=== PATIENT | male | born 1985 | race Caucasian/White ===

== ENCOUNTER 2018-12-08 20:39 | Emergency (ER) | payer SELFPAY ==
[~2018-12-08] VITALS: Ht 170 cm; Wt 70.4 kg
[~2018-12-08 20:39] MED LIST: AC500T PO; HYDR1TAB PO
--- NOTE | 2018-12-08 21:00 | NUR ---
PATIENT TO ROOM 8, CRYING AND VERBAKIZES HE JUST FOUND HIS CHEATING ON HIM AND IS VERY TEARFUL. STATES "I REALLY WOULDNT DO IT THOUGH BECAUSE OF MY KIDS"
[2018-12-08] MEDS ORDERED: LORazepam INJ 2 MG/ML (ATIVAN) VIAL IVP PRN ×3 (21:15→22:15)
--- NOTE | 2018-12-08 21:17 | NUR ---
MATT BRADEN STARTS IV AND ADMINISTERS 1.5 MG OF IV ATIVAN FOR PATIENT ANXIETY.
--- NOTE | 2018-12-08 21:28 | ED Psychosocial ---
General Chief Complaint: Psych/Social Disorder Stated Complaint: CONFUSED Nursing Triage Note: PATIENT CRYING LOUDLY IN TRIAGE STATING THAT HE HAS LOST EVERYTHING. HE TELLS ME THERE HAS BEEN MULTIPLE DEATHS. HE STATES HE HAS BEEN DOING DRUGS SINCE HE WAS A KID. HE STATES THAT EVERYTHING BAD THAT HAS HAPPENED IS HIS FAULT AND HE IS UPSET BECAUSE HE IS SUPPOSED TO BE THE ONE TAKING CARE OF HIS FAMILY. HE ADMITS THAT HE HAS DONE METH TODAY AND POSSIBLY SOME PCP. HE ADMITS TO THOUGHTS OF HURTING HIMSELF, BUT NOT ANYONE ELSE. Source: patient Exam Limitations: no limitations History of Present Illness Date Seen by Provider: Dec 08, 2018 Time Seen by Provider: 21:27 Initial Comments To ER with anxiety depression and thoughts of hurting himself related to ongoing depression and having "lost everything" relating to significant other and children. He has done some methamphetamine PCP and probably several other things today. 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15 Timing/Duration: constant Severity: moderate Associated Symptoms: insomnia Allergies and Home Medications Allergies Coded Allergies: hydrocodone (Unverified Adverse Reaction, Intermediate, VOMITTED, 08/11/09) Home Medications Hydrocodone Bit/Acetaminophen 1 Each Tablet, 1 EACH PO Q6HR PRN Prescribed by: TRENTON MARTIN on 08/11/09 1640 Patient Home Medication List Home Medication List Reviewed: Yes Review of Systems Constitutional: see HPI EENTM: see HPI Respiratory: no symptoms reported Cardiovascular: no symptoms reported Genitourinary: no symptoms reported Musculoskeletal: no symptoms reported Skin: no symptoms reported Psychiatric/Neurological: See HPI Past Bxwsksl-[id number]-Ibwlrl Hx Patient Social History Alcohol Use: Occasionally Uses Recreational Drug Use: Yes Smoking Status: Current Everyday Smoker Type Used: Cigarettes 2nd Hand Smoke Exposure: Yes Recent Foreign Travel: No Contact w/Someone Who Travel: No Recent Infectious Disease Expo: No Recent Hopitalizations: No Seasonal Allergies Seasonal Allergies: No Past Medical History Surgeries: No Physical Exam Vital Signs - First Documented 12/08/18 20:45 Temp 37.0 Pulse 126 Resp 18 B/P (MAP) 177/94 (121) Pulse Ox 97 Capillary Refill : Less Than 3 Seconds Height, Weight, BMI Height: '" Weight: lbs. oz. kg; 24.00 BMI Method: General Appearance: WD/WN, no apparent distress HEENT: PERRL/EOMI, normal ENT inspection Neck: non-tender, full range of motion Respiratory: no respiratory distress, no accessory muscle use Gastrointestinal: normal bowel sounds, non tender, soft Neurologic/Psychiatric: alert, normal mood/affect, oriented x 3, other (tearful, crying, talking loudly at a high rate of speed. 0.5 mg of Ativan ordered.) Appearance/Memory: disheveled Behavior/Eye Contact: cooperative, good eye contact Thoughts/Hallucinations: flight of ideas Skin: normal color, warm/dry Progress/Results/Core Measures Results/Orders Lab Results Laboratory Tests Test 12/08/18 21:17 12/08/18 21:26 Range/Units White Blood Count 13.0 H 4.3-11.0 10^3/uL Red Blood Count 4.54 4.35-5.85 10^6/uL Hemoglobin 13.8 13.3-17.7 G/DL Hematocrit 40 40-54 % Mean Corpuscular Volume 88 80-99 FL Mean Corpuscular Hemoglobin 30 25-34 PG Mean Corpuscular Hemoglobin Concent 35 32-36 G/DL Red Cell Distribution Width 13.5 10.0-14.5 % Platelet Count 354 130-400 10^3/uL Mean Platelet Volume 9.1 7.4-10.4 FL Neutrophils (%) (Auto) 71 42-75 % Lymphocytes (%) (Auto) 13 12-44 % Monocytes (%) (Auto) 15 H 0-12 % Eosinophils (%) (Auto) 0 0-10 % Basophils (%) (Auto) 0 0-10 % Neutrophils # (Auto) 9.3 H 1.8-7.8 X 10^3 Lymphocytes # (Auto) 1.7 1.0-4.0 X 10^3 Monocytes # (Auto) 1.9 H 0.0-1.0 X 10^3 Eosinophils # (Auto) 0.0 0.0-0.3 10^3/uL Basophils # (Auto) 0.1 0.0-0.1 10^3/uL Sodium Level 141 135-145 MMOL/L Potassium Level 3.5 L 3.6-5.0 MMOL/L Chloride Level 106 98-107 MMOL/L Carbon Dioxide Level 20 L 21-32 MMOL/L Anion Gap 15 H 5-14 MMOL/L Blood Urea Nitrogen 24 H 7-18 MG/DL Creatinine 1.01 0.60-1.30 MG/DL Estimat Glomerular Filtration Rate > 60 BUN/Creatinine Ratio 24 Glucose Level 87 70-105 MG/DL Calcium Level 9.4 8.5-10.1 MG/DL Corrected Calcium 8.5-10.1 MG/DL Total Bilirubin 0.9 0.1-1.0 MG/DL Aspartate Amino Transf (AST/SGOT) 50 H 5-34 U/L Alanine Aminotransferase (ALT/SGPT) 22 0-55 U/L Alkaline Phosphatase 91 40-136 U/L Total Protein 8.4 H 6.4-8.2 GM/DL Albumin 5.0 H 3.2-4.5 GM/DL Salicylates Level < 5.0 L 5.0-20.0 MG/DL Acetaminophen Level < 10 L 10-30 UG/ML Serum Alcohol < 10 <10 MG/DL Urine Color YELLOW Urine Clarity CLEAR Urine pH 5 5-9 Urine Specific [place] 1.030 H 1.016-1.022 Urine Protein 2+ H NEGATIVE Urine Glucose (UA) NEGATIVE NEGATIVE Urine Ketones 2+ H NEGATIVE Urine Nitrite NEGATIVE NEGATIVE Urine Bilirubin NEGATIVE NEGATIVE Urine Urobilinogen 1 NORMAL MG/DL Urine Leukocyte Esterase 1+ H NEGATIVE Urine RBC (Auto) NEGATIVE NEGATIVE Urine RBC 0-2 /HPF Urine WBC 5-10 H /HPF Urine Squamous Epithelial Cells NONE /HPF Urine Crystals NONE /LPF Urine Bacteria MODERATE H /HPF Urine Casts NONE /LPF Urine Mucus NEGATIVE /LPF Urine Culture Indicated YES Urine Opiates Screen NEGATIVE NEGATIVE Urine Oxycodone Screen NEGATIVE NEGATIVE Urine Methadone Screen NEGATIVE NEGATIVE Urine Propoxyphene Screen NEGATIVE NEGATIVE Urine Barbiturates Screen NEGATIVE NEGATIVE Ur Tricyclic Antidepressants Screen NEGATIVE NEGATIVE Urine Phencyclidine Screen NEGATIVE NEGATIVE Urine Amphetamines Screen POSITIVE H NEGATIVE Urine Methamphetamines Screen POSITIVE H NEGATIVE Urine Benzodiazepines Screen NEGATIVE NEGATIVE Urine Cocaine Screen NEGATIVE NEGATIVE Urine Cannabinoids Screen POSITIVE H NEGATIVE My Orders Orders - MATT BRADEN APRN Cbc With Automated Diff (12/08/18 21:06) Comprehensive Metabolic Panel (12/08/18 21:06) Alcohol (12/08/18 21:06) Salicylate (12/08/18 21:06) Acetaminophen (12/08/18 21:06) Ekg Tracing (12/08/18 21:06) Ua Culture If Indicated (12/08/18 21:06) Drug Screen Stat (Urine) (12/08/18 21:06) Lorazepam Injection (Ativan Injection) (12/08/18 21:15) Lorazepam Injection (Ativan Injection) (12/08/18 21:30) Urine Culture (12/08/18 21:26) Lorazepam Injection (Ativan Injection) (12/08/18 22:15) Medications Given in ED Current Medications Medications Dose Ordered Sig/[place]ora Route Start Time Stop Time Status Last Admin Dose Admin Lorazepam 1.5 mg ONCE PRN IVP 12/08/18 21:30 12/08/18 21:17 1.5 MG Vital Signs/I&O 12/08/18 20:45 Temp 37.0 Pulse 126 Resp 18 B/P (MAP) 177/94 (121) Pulse Ox 97 Blood Pressure Mean: 121 Departure Communication (Admissions) [id number]-patient is much more relaxed assures me he will not kill himself or harm himself because he is his , his daughter's birthday is on Tuesday and he wants to be around for that. He is much calmer now and feels that outpatient therapy is appropriate. Impression Primary Impression: Anxiety Disposition: 01 HOME, SELF-CARE Condition: Stable Departure-Patient Inst. Decision time for Depature: 22:10 Referrals: NO,LOCAL PHYSICIAN (PCP/Family) Primary Care Physician Patient Instructions: Anxiety, Adult (DC) MATT BRADEN APRN Dec 08, 2018 21:28
[2018-12-08 21:30] LABS: BASOPHILS # (AUTO) 0.1 10^3/uL (0.0-0.1); BASOPHILS % (AUTO) 0 % (0-10); EOSINOPHILS % (AUTO) 0 % (0-10); HEMATOCRIT 40 % (40-54); HEMOGLOBIN 13.8 G/DL (13.3-17.7); LYMPHOCYTES # (AUTO) 1.7 X 10^3 (1.0-4.0); LYMPHOCYTES % (AUTO) 13 % (12-44); MEAN CORPUSCULAR HEMOGLOBIN 30 PG (25-34); MEAN CORPUSCULAR HGB CONC 35 G/DL (32-36); MEAN CORPUSCULAR VOLUME 88 FL (80-99); MEAN PLATELET VOLUME 9.1 FL (7.4-10.4); MONOCYTES # (AUTO) 1.9 X 10^3 (0.0-1.0); MONOCYTES % (AUTO) 15 % (0-12); NEUTROPHILS # (AUTO) 9.3 X 10^3 (1.8-7.8); NEUTROPHILS % (AUTO) 71 % (42-75); PLATELET COUNT 354 10^3/uL (130-400); RED CELL DISTRIBUTION WIDTH 13.5 % (10.0-14.5)
[2018-12-08 21:38] LABS: BILIRUBIN,URINE NEGATIVE (NEGATIVE); CLARITY,URINE CLEAR; COLOR,URINE YELLOW; GLUCOSE, URINE (UA) NEGATIVE (NEGATIVE); KETONES,URINE 2+ (NEGATIVE); LEUKOCYTE ESTERASE ,URINE 1+ (NEGATIVE); NITRITE,URINE NEGATIVE (NEGATIVE); PH,URINE 5 (5-9); PROTEIN,URINE 2+ (NEGATIVE); UROBILINOGEN,URINE 1 MG/DL (NORMAL)
[2018-12-08 21:45] LABS: BACTERIA,URINE MODERATE /HPF; RBC,URINE 0-2 /HPF
--- NOTE | 2018-12-08 21:45 | NUR ---
PATIENT IS RESTING QUIETLY IN ROOM, STATES HE IS FEELLING BETTER ADN HIS ANXIETY IS GETTING BETTER. PATIENT IS NO LONGER TEARFUL.
[2018-12-08 21:50] LABS: ACETAMINOPHEN < 10 UG/ML (10-30); ALANINE AMINOTRANSFERASE 22 U/L (0-55); ALKALINE PHOSPHATASE 91 U/L (40-136); BILIRUBIN,TOTAL 0.9 MG/DL (0.1-1.0); BUN/CREATININE RATIO 24; CALCIUM 9.4 MG/DL (8.5-10.1); CARBON DIOXIDE 20 MMOL/L (21-32); CHLORIDE 106 MMOL/L (98-107); CREATININE SERUM 1.01 MG/DL (0.60-1.30); GFR ESTIMATED > 60; GLUCOSE 87 MG/DL (70-105); POTASSIUM 3.5 MMOL/L (3.6-5.0); SALICYLATE < 5.0 MG/DL (5.0-20.0); SODIUM 141 MMOL/L (135-145); TOTAL PROTEIN 8.4 GM/DL (6.4-8.2)
[2018-12-08 21:52] LABS: AMPHETAMINE SCREEN, URINE POSITIVE (NEGATIVE); BARBITURATE SCREEN URINE NEGATIVE (NEGATIVE); BENZODIAZEPINES SCREEN URINE NEGATIVE (NEGATIVE); CANNABINOID SCREEN, URINE POSITIVE (NEGATIVE); COCAINE SCREEN URINE NEGATIVE (NEGATIVE); METHADONE STAT NEGATIVE (NEGATIVE); METHAMPHETAMINE SCREEN URINE S POSITIVE (NEGATIVE); OPIATE SCREEN URINE NEGATIVE (NEGATIVE); OXYCODONE STAT NEGATIVE (NEGATIVE); PROPOXYPHENE STAT NEGATIVE (NEGATIVE); TRICYCLIC ANTIDEPRESSANTS SCRE NEGATIVE (NEGATIVE)
--- NOTE | 2018-12-08 22:30 | NUR ---
PATIENT IS GIVEN ATIVAN IV PER MATT BRADEN AND VERBALLIZES HE IS FEELING BETTER.
--- NOTE | 2018-12-08 22:31 | NUR ---
PATIENT BELONGINGS RETURNED TO PATIENT, IV REMOVED BY AIRAM PLUMMER
[2018-12-08 22:34] VITALS: BP 177/94
--- NOTE | 2018-12-08 22:51 | NUR ---
PATIENT REQUESTS VOUCHER FOR A TAXI, MATT BRADEN HAS LEFT SO DR WEINBERG IS ASKED AND GIVES PERMISSION FOR A LOCAL TAXI VOUCHER.
== END 2018-12-08 22:34 | disposition home or self-care (01) ==
LOC: EDUNIT# 20:39 → ER 20:42
DX: F41.9 Anxiety disorder, unspecified (principal); F32.9 Major depressive disorder, single episode, unspecified; F17.210 Nicotine dependence, cigarettes, uncomplicated; Z88.5 Allergy status to narcotic agent
CPT/HCPCS: 36415; 80053; 80306; 80320; 80329; 81000; 85025; 87088; 93005

== ENCOUNTER 2018-12-10 20:56 | Emergency (ER) | payer SELFPAY ==
[~2018-12-10] VITALS: Ht 170 cm; Wt 70.4 kg
[2018-12-10] MEDS ORDERED: NS IV 1000 ML 1,000 ML IV SCH (21:05)
[2018-12-10 21:14] LABS: BASOPHILS % (AUTO) 0 % (0-10); EOSINOPHILS % (AUTO) 0 % (0-10); HEMATOCRIT 35 % (40-54); HEMOGLOBIN 11.9 G/DL (13.3-17.7); LYMPHOCYTES # (AUTO) 1.5 X 10^3 (1.0-4.0); LYMPHOCYTES % (AUTO) 20 % (12-44); MEAN CORPUSCULAR HEMOGLOBIN 30 PG (25-34); MEAN CORPUSCULAR HGB CONC 34 G/DL (32-36); MEAN CORPUSCULAR VOLUME 88 FL (80-99); MEAN PLATELET VOLUME 9.2 FL (7.4-10.4); MONOCYTES # (AUTO) 1.3 X 10^3 (0.0-1.0); MONOCYTES % (AUTO) 18 % (0-12); NEUTROPHILS # (AUTO) 4.5 X 10^3 (1.8-7.8); NEUTROPHILS % (AUTO) 61 % (42-75); PLATELET COUNT 259 10^3/uL (130-400); RED CELL DISTRIBUTION WIDTH 13.3 % (10.0-14.5); WHITE BLOOD COUNT 7.3 10^3/uL (4.3-11.0)
[2018-12-10 21:26] LABS: ALANINE AMINOTRANSFERASE 28 U/L (0-55); ALBUMIN 4.3 GM/DL (3.2-4.5); ALKALINE PHOSPHATASE 71 U/L (40-136); BILIRUBIN,TOTAL 0.7 MG/DL (0.1-1.0); BUN/CREATININE RATIO 15; CALCIUM 9.4 MG/DL (8.5-10.1); CARBON DIOXIDE 22 MMOL/L (21-32); CHLORIDE 109 MMOL/L (98-107); CREATININE SERUM 0.75 MG/DL (0.60-1.30); GFR ESTIMATED > 60; GLUCOSE 97 MG/DL (70-105); POTASSIUM 3.3 MMOL/L (3.6-5.0); SALICYLATE < 5.0 MG/DL (5.0-20.0); SODIUM 143 MMOL/L (135-145); TOTAL PROTEIN 7.1 GM/DL (6.4-8.2)
[2018-12-10 21:29] LABS: ACETAMINOPHEN < 10 UG/ML (10-30)
[2018-12-10] MEDS ORDERED: LACTATED RINGERS 1,000 ML IV ONE ×2 (21:36→22:21)
[2018-12-10] MEDS ORDERED: ONDANSETRON 4 MG/2 ML (SDV) Z0FRAN IVP ONE (21:45)
[2018-12-10 21:49] LABS: TSH (THYROID ANALYZER) 0.76 UIU/ML (0.35-4.94)
[2018-12-10 23:08] LABS: BILIRUBIN,URINE NEGATIVE (NEGATIVE); CLARITY,URINE CLEAR; COLOR,URINE YELLOW; GLUCOSE, URINE (UA) NEGATIVE (NEGATIVE); KETONES,URINE 3+ (NEGATIVE); LEUKOCYTE ESTERASE ,URINE 1+ (NEGATIVE); NITRITE,URINE NEGATIVE (NEGATIVE); PH,URINE 5 (5-9); PROTEIN,URINE 2+ (NEGATIVE); UROBILINOGEN,URINE 1 MG/DL (NORMAL)
[2018-12-10 23:19] LABS: BACTERIA,URINE TRACE /HPF; RBC,URINE RARE /HPF; WBC,URINE 0-2 /HPF
[2018-12-10 23:35] LABS: AMPHETAMINE SCREEN, URINE NEGATIVE (NEGATIVE); BENZODIAZEPINES SCREEN URINE POSITIVE (NEGATIVE); CANNABINOID SCREEN, URINE POSITIVE (NEGATIVE); COCAINE SCREEN URINE NEGATIVE (NEGATIVE); METHAMPHETAMINE SCREEN URINE S NEGATIVE (NEGATIVE)
[2018-12-10 23:36] LABS: BARBITURATE SCREEN URINE NEGATIVE (NEGATIVE); METHADONE STAT NEGATIVE (NEGATIVE); OPIATE SCREEN URINE NEGATIVE (NEGATIVE); OXYCODONE STAT NEGATIVE (NEGATIVE); PROPOXYPHENE STAT NEGATIVE (NEGATIVE); TRICYCLIC ANTIDEPRESSANTS SCRE NEGATIVE (NEGATIVE)
--- NOTE | 2018-12-11 | ED Psychosocial ---
General Chief Complaint: Substance Abuse Stated Complaint: DETOX Nursing Triage Note: PT REPORTS USING METH TODAY, STATES HE BELIEVES PEOPLE PLACED THE METH INTO SOMETHING HE ATE/DRANK/SMOKED AND THEY ARE OUT TO KILL HIM. PT NOTED TO BE SOAKING WET, CHANGED INTO A ROBE, PT STATES HE JUST WANTS TO DETOX FOR DAUGHTERS BIRTHDAY, FEELS LIKE PEOPLE ARE TRYING TO SABOTAGE THIER RELATIONSHIP. Allergies and Home Medications Allergies Coded Allergies: hydrocodone (Unverified Adverse Reaction, Intermediate, VOMITTED, 08/11/09) Home Medications Hydrocodone Bit/Acetaminophen 1 Each Tablet, 1 EACH PO Q6HR PRN Prescribed by: TRENTON MARTIN on 08/11/09 1640 Past Trrkiqs-Orfuvx-Hsytqr Hx Patient Social History Alcohol Use: Occasionally Uses Alcohol Beverage of Choice: Beer Recreational Drug Use: Yes Drug of Choice: PCP, METH, THC Smoking Status: Current Everyday Smoker Type Used: Cigarettes 2nd Hand Smoke Exposure: Yes Recent Foreign Travel: No Contact w/Someone Who Travel: No Recent Infectious Disease Expo: No Recent Hopitalizations: No Physical Abuse: No Sexual Abuse: No Fear: Yes (FEARS UNIDENTIFIED PEOPLE WANT TO KILL HIM) Immunizations Up To Date Tetanus Booster (TDap): Unknown PED Vaccines UTD: Yes Seasonal Allergies Seasonal Allergies: No Past Medical History Surgeries: No Respiratory: No Cardiac: No Neurological: No Genitourinary: No Gastrointestinal: No Musculoskeletal: No Endocrine: No HEENT: No Cancer: No Psychosocial: Yes Anxiety, PTSD, Schizophrenia Integumentary: No Blood Disorders: No Adverse Reaction/Blood Tranf: No Physical Exam Vital Signs - First Documented 12/10/18 20:59 Temp 37.6 Pulse 88 Resp 22 B/P (MAP) 128/92 (104) Pulse Ox 97 O2 Delivery Room Air Capillary Refill : Less Than 3 Seconds Height, Weight, BMI Height: '" Weight: lbs. oz. kg; 24.00 BMI Method: Progress/Results/Core Measures Results/Orders Lab Results Laboratory Tests Test 12/10/18 21:00 12/10/18 23:02 Range/Units White Blood Count 7.3 4.3-11.0 10^3/uL Red Blood Count 3.97 L 4.35-5.85 10^6/uL Hemoglobin 11.9 L 13.3-17.7 G/DL Hematocrit 35 L 40-54 % Mean Corpuscular Volume 88 80-99 FL Mean Corpuscular Hemoglobin 30 25-34 PG Mean Corpuscular Hemoglobin Concent 34 32-36 G/DL Red Cell Distribution Width 13.3 10.0-14.5 % Platelet Count 259 130-400 10^3/uL Mean Platelet Volume 9.2 7.4-10.4 FL Neutrophils (%) (Auto) 61 42-75 % Lymphocytes (%) (Auto) 20 12-44 % Monocytes (%) (Auto) 18 H 0-12 % Eosinophils (%) (Auto) 0 0-10 % Basophils (%) (Auto) 0 0-10 % Neutrophils # (Auto) 4.5 1.8-7.8 X 10^3 Lymphocytes # (Auto) 1.5 1.0-4.0 X 10^3 Monocytes # (Auto) 1.3 H 0.0-1.0 X 10^3 Eosinophils # (Auto) 0.0 0.0-0.3 10^3/uL Basophils # (Auto) 0.0 0.0-0.1 10^3/uL Sodium Level 143 135-145 MMOL/L Potassium Level 3.3 L 3.6-5.0 MMOL/L Chloride Level 109 H 98-107 MMOL/L Carbon Dioxide Level 22 21-32 MMOL/L Anion Gap 12 5-14 MMOL/L Blood Urea Nitrogen 11 7-18 MG/DL Creatinine 0.75 0.60-1.30 MG/DL Estimat Glomerular Filtration Rate > 60 BUN/Creatinine Ratio 15 Glucose Level 97 70-105 MG/DL Calcium Level 9.4 8.5-10.1 MG/DL Corrected Calcium 9.2 8.5-10.1 MG/DL Total Bilirubin 0.7 0.1-1.0 MG/DL Aspartate Amino Transf (AST/SGOT) 42 H 5-34 U/L Alanine Aminotransferase (ALT/SGPT) 28 0-55 U/L Alkaline Phosphatase 71 40-136 U/L Total Protein 7.1 6.4-8.2 GM/DL Albumin 4.3 3.2-4.5 GM/DL TSH [place] Testing 0.76 0.35-4.94 UIU/ML Salicylates Level < 5.0 L 5.0-20.0 MG/DL Acetaminophen Level < 10 L 10-30 UG/ML Serum Alcohol < 10 <10 MG/DL Urine Color YELLOW Urine Clarity CLEAR Urine pH 5 5-9 Urine Specific [place] 1.025 H 1.016-1.022 Urine Protein 2+ H NEGATIVE Urine Glucose (UA) NEGATIVE NEGATIVE Urine Ketones 3+ H NEGATIVE Urine Nitrite NEGATIVE NEGATIVE Urine Bilirubin NEGATIVE NEGATIVE Urine Urobilinogen 1 NORMAL MG/DL Urine Leukocyte Esterase 1+ H NEGATIVE Urine RBC (Auto) NEGATIVE NEGATIVE Urine RBC RARE /HPF Urine WBC 0-2 /HPF Urine Crystals NONE /LPF Urine Bacteria TRACE /HPF Urine Casts NONE /LPF Urine Mucus LARGE H /LPF Urine Culture Indicated NO Urine Opiates Screen NEGATIVE NEGATIVE Urine Oxycodone Screen NEGATIVE NEGATIVE Urine Methadone Screen NEGATIVE NEGATIVE Urine Propoxyphene Screen NEGATIVE NEGATIVE Urine Barbiturates Screen NEGATIVE NEGATIVE Ur Tricyclic Antidepressants Screen NEGATIVE NEGATIVE Urine Phencyclidine Screen NEGATIVE NEGATIVE Urine Amphetamines Screen NEGATIVE NEGATIVE Urine Methamphetamines Screen NEGATIVE NEGATIVE Urine Benzodiazepines Screen POSITIVE H NEGATIVE Urine Cocaine Screen NEGATIVE NEGATIVE Urine Cannabinoids Screen POSITIVE H NEGATIVE My Orders Orders - JAILENE WEINBERG DO Urinalysis (12/10/18 21:05) Thyroid Analyzer (12/10/18 21:05) Drug Screen Stat (Urine) (12/10/18 21:05) Cbc With Automated Diff (12/10/18 21:05) Comprehensive Metabolic Panel (12/10/18 21:05) Alcohol (12/10/18 21:05) Acetaminophen (12/10/18 21:05) Salicylate (12/10/18 21:05) Ekg Tracing (12/10/18 21:05) Monitor-Rhythm Ecg Trace Only (12/10/18 21:05) Ed Iv/Invasive Line Start (12/10/18 21:05) Ed Iv/Invasive Line Start (12/10/18 21:05) Ns Iv 1000 Ml (Sodium Chloride 0.9%) (12/10/18 21:05) Ondansetron Injection (Zofran Injectio (12/10/18 21:45) Ed Iv/Invasive Line Start (12/10/18 21:36) Lactated Ringers (Lr 1000 Ml Iv Solution (12/10/18 21:36) Ed Iv/Invasive Line Start (12/10/18 22:21) Lactated Ringers (Lr 1000 Ml Iv Solution (12/10/18 22:21) Medications Given in ED Current Medications Medications Dose Ordered Sig/Aurora Route Start Time Stop Time Status Last Admin Dose Admin Lactated Ringer's 1,000 ml @ 0 mls/hr Q0M ONCE IV 12/10/18 21:36 12/10/18 21:37 DC 12/10/18 21:39 1,000 MLS/HR Lactated Ringer's 1,000 ml @ 0 mls/hr Q0M ONCE IV 12/10/18 22:21 12/10/18 22:27 DC 12/10/18 22:35 1,000 MLS/HR Ondansetron HCl 4 mg ONCE ONCE IVP 12/10/18 21:45 12/10/18 21:46 DC 12/10/18 22:04 4 MG Vital Signs/I&O 12/10/18 20:59 Temp 37.6 Pulse 88 Resp 22 B/P (MAP) 128/92 (104) Pulse Ox 97 O2 Delivery Room Air Blood Pressure Mean: 104 Departure Impression Primary Impression: Drug abuse Disposition: 01 HOME, SELF-CARE Condition: Stable Departure-Patient Inst. Referrals: NO,LOCAL PHYSICIAN (PCP) Primary Care Physician Patient Instructions: ALCOHOL AND SUBSTANCE ABUSE Add. Discharge Instructions: HOME. REST NO DRUGS FOLLOW UP WITH [facility] T[facility] All discharge instructions reviewed with patient and/or family. Voiced understanding. JAILENE WEINBERG DO Dec 11, 2018 00:00
[2018-12-11 00:29] VITALS: BP 134/93
== END 2018-12-11 00:29 | disposition home or self-care (01) ==
LOC: EDUNIT# 20:56 → ER 20:57
DX: F15.10 Other stimulant abuse, uncomplicated (principal); F41.9 Anxiety disorder, unspecified; F43.10 Post-traumatic stress disorder, unspecified; F20.9 Schizophrenia, unspecified; F17.210 Nicotine dependence, cigarettes, uncomplicated; Z88.5 Allergy status to narcotic agent
CPT/HCPCS: 36415; 80053; 80306; 80320; 80329; 81000; 84443; 85025; 93005; 93041